=== PATIENT | female | born 1965 | race Caucasian/White ===

== ENCOUNTER 2025-06-30 13:31 | Emergency (ER) | payer BC, SELFPAY ==
[2025-06-30 14:08] VITALS: BP 148/100; PULSE 74; TEMP 37.4; O2SAT 96; BMI 25.1
--- NOTE | 2025-06-30 14:18 | XR_ITS ---
[facility] [id number] Patient Name: VINNY SAMANIEGO MRN: [id number] date: 1965 Sex: F Assigned Patient Location: ER Current Patient Location: ER Accession/Order Number: [id number] Exam Date: 06/30/2025 14:40 Report Date: 06/30/2025 15:09 At the request of: STEFANIE BECERRA MD Procedure: XR ankle RT min 3V RIGHT FOOT - 3 views, right ankle 3 views CLINICAL HISTORY: injury COMPARISON: None FINDINGS: Right ankle: Soft tissue swelling. Ankle mortise appears intact. No acute bony process. Right foot: Soft tissue swelling is present. Plantar spurring is seen. No acute bony process. Minimal degenerative changes. XR/XR ankle RT min 3V IMPRESSION: SOFT TISSUE SWELLING INVOLVING THE RIGHT ANKLE AND FOOT WITHOUT ACUTE BONY PROCESS. Impression dictated by: Kenny Boo Jr., D.OZeeshan 06/30/2025 3:09 PM Dictation Location: [facility] Electronically authenticated by: [id number] Y Date: 06/30/2025 15:09
--- NOTE | 2025-06-30 14:18 | XR_ITS ---
[facility] [id number] Patient Name: VINNY SAMANIEGO MRN: [id number] date: 1965 Sex: F Assigned Patient Location: ER Current Patient Location: ER Accession/Order Number: [id number] Exam Date: 06/30/2025 14:40 Report Date: 06/30/2025 15:09 At the request of: STEFANIE BECERRA MD Procedure: XR ankle RT min 3V RIGHT FOOT - 3 views, right ankle 3 views CLINICAL HISTORY: injury COMPARISON: None FINDINGS: Right ankle: Soft tissue swelling. Ankle mortise appears intact. No acute bony process. Right foot: Soft tissue swelling is present. Plantar spurring is seen. No acute bony process. Minimal degenerative changes. XR/XR foot RT min 3V IMPRESSION: SOFT TISSUE SWELLING INVOLVING THE RIGHT ANKLE AND FOOT WITHOUT ACUTE BONY PROCESS. Impression dictated by: Kenny Boo Jr., D.OZeeshan 06/30/2025 3:09 PM Dictation Location: [facility] Electronically authenticated by: [id number] Y Date: 06/30/2025 15:09
--- NOTE | 2025-06-30 15:54 | ED.GENADUL1 ---
HPI HPI - General Adult General Chief complaint: Extremity Injury, Lower Stated complaint: R FOOT INJURY LAST WK/ SWELLING Time Seen by Provider: 06/30/25 15:37 Source: patient Mode of arrival: walk-in Limitations: no limitations History of Present Illness HPI narrative: Patient is a 59-year-old female that presents to the emergency department 4 days after she was walking down the stairs at work and tripped down 3 steps causing pain to her right ankle. She states she was seen [facility] [id number] in [place] where she was given the diagnosis of ankle sprain and was placed in a Kike wrap and Aircast brace. She presents today as she is still having pain and swelling and had to call off of work Tuesday. She denies any new injury. She states that she is still having pain with ambulation with the Kike wrap and could not tolerate the Aircast brace. Related Data Allergies Allergy/AdvReac Type Severity Reaction Status Date / Time antibiotic AdvReac Numbness Uncoded 06/30/25 14:17 Opioid HPI Opioid Management Most Recent Opioid Data: Last Pain Scale 5 Today, 14:08 Review of Systems ROS Status of ROS 10 or more systems reviewed and unremarkable except as noted in history and below PFSH PFSH Social History Little interest or pleasure in doing things: not at all Feeling down, depressed, or hopeless: not at all Exam Narrative Exam Narrative: General: No distress, age-appropriate, walks with antalgic gait Skin: Warm, dry, no pallor. No rash. Head: Normocephalic, atraumatic. Neck: Supple, non-tender. Eye: Pupils are equal, round and EOMI. No scleral icterus. Ears, Nose, Mouth, and Throat: No nasal mucosal hypertrophy. Oral mucosa is moist, no posterior oropharynx erythema, uvula is mid-line Cardiovascular: Regular Rate and Rhythm without murmur, gallop or rub. Respiratory: No accessory muscle use or respiratory distress. Lungs are clear to auscultation, no wheezing, rales or rhonchi Chest Wall: no tenderness Back: No midline thoracic or lumbar vertebral tenderness. Musculoskeletal: Full ROM of all extremities, except right ankle decreased ROM in DF/PF and eversion/inversion secondary to pain, diffuse ankle/foot swelling. 2+ DP pulse palpated. Sensation intact distally. There is tenderness with palpation of the ATFL, CFL, PTFL, deltoid ligament, and tibiotalar interosseous ligament. Pain with lateral tilt no gross instability. Positive anterior drawer for pain, no gross instability. No calf or popliteal tenderness. GI: Abdomen is soft, non-distended, non tender to palpation. No masses appreciated. No rebound, guarding, or rigidity noted. Neurological: A&O x4. No cranial nerve dysfunction observed. No truncal ataxia. Moves all extremities. Sensation intact. Psychiatric: Cooperative and interactive. Normal mood and affect. Constitutional Vital Signs, click to edit/add: Last Vital Signs Temp 99.3 F 06/30/25 14:08 Pulse 74 06/30/25 14:08 Resp 12 06/30/25 14:08 BP 148/100 H 06/30/25 14:08 Pulse Ox 96 06/30/25 14:08 O2 Del Method Room Air 06/30/25 14:08 Documenting provider has reviewed patient's vital signs: yes Course Vital Signs Vital signs: Vital Signs Temperature 99.3 F 06/30/25 14:08 Pulse Rate 74 06/30/25 14:08 Respiratory Rate 12 06/30/25 14:08 Blood Pressure 148/100 H 06/30/25 14:08 Pulse Oximetry 96 06/30/25 14:08 Oxygen Delivery Method Room Air 06/30/25 14:08 Temperature 99.3 F 06/30/25 14:08 Pulse Rate 74 06/30/25 14:08 Respiratory Rate 12 06/30/25 14:08 Blood Pressure 148/100 H 06/30/25 14:08 Pulse Oximetry 96 06/30/25 14:08 Oxygen Delivery Method Room Air 06/30/25 14:08 Medical Decision Making MDM Narrative Medical decision making narrative: This is a 59-year-old female that presented to the emergency department 4 days after a trip and fall down 3 steps at work and injured her right ankle. She works at the [employer]. This is her second injury to this ankle in the past year. She denies any past surgical history on the ankle. She did go to [facility] and was diagnosed with an ankle sprain and given an Aircast and Kike wrap. She could not tolerate the Aircast and had to call off Tuesday as they did not write her off of work. 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 On arrival patient is in no distress, vitals are stable. Pain appears to be controlled, she is sitting up on the ED cart. There is diffuse swelling to the ankle and foot. 2+ DP pulse palpated. Sensation is intact distally. Patient able to fully flex and extend toes. She has tenderness with palpation to the medial and lateral ankle ligaments and the interosseous membrane. No gross instability on ligament test testing. X-ray right foot reviewed by myself and radiological read is negative for fracture or dislocation. Soft tissue swelling noted. No ankle mortise widening per my review. I discussed imaging with patient and am recommending a tall walking boot with weightbearing as tolerated. 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 Ankle sprain - Tall walking boot, weightbearing as tolerated - X-ray right foot/ankle negative for fracture/dislocation - OTC NSAIDs as needed for pain - Rest, ice, compression, and elevation - Follow-up with onsite occupational provider and get in touch with child welfare caseworker for [employer] tomorrow. - On reevaluation patient can ambulate without pain in the tall walking boot. Patient was discharged to home, pain control, with close follow-up with occupational health provider. Differential Diagnosis Differential Diagnosis: Ankle fracture, ankle sprain Imaging Data Right ankle/foot x-ray: Attestation: I have reviewed the pertinent imaging results. Radiologist's impression: ITS Impressions Ankle X-Ray 06/30/25 14:18 IMPRESSION: SOFT TISSUE SWELLING INVOLVING THE RIGHT ANKLE AND FOOT WITHOUT ACUTE BONY PROCESS. Impression dictated by: Kenny Boo Jr., D.O. 06/30/2025 3:09 PM Dictation Location: [employer] Electronically authenticated by: [id number] Y Date: 06/30/2025 15:09 Foot X-Ray 06/30/25 14:18 IMPRESSION: SOFT TISSUE SWELLING INVOLVING THE RIGHT ANKLE AND FOOT WITHOUT ACUTE BONY PROCESS. Impression dictated by: Kenny Boo Jr., D.O. 06/30/2025 3:09 PM Dictation Location: [employer] Electronically authenticated by: [id number] Y Date: 06/30/2025 15:09 Discharge Plan Discharge Chief Complaint: Extremity Injury, Lower Clinical Impression: Ankle sprain Patient Disposition: Home, Self-Care Time of Disposition Decision: 16:11 Condition: Good Mode of Transportation: Private Vehicle Print Language: [place] Instructions: Ankle Sprain (ED), Walking Boot (ED) Additional Instructions: Wear the walking boot when out of bed. You can bear weight through your right foot as tolerated by pain. You may need crutches short-term if you are still having a lot of pain in the boot with walking. You do not need to wear the boot to bed unless you feel more comfortable in it. Remove the boot for hygiene. Continue to rest, elevate, ice, and wrap with an Kike wrap. You can use [id number] nonsteroidal anti-inflammatories to help with pain, Tylenol or ibuprofen. Follow-up with your onsite occupational provider for ER aftercare follow-up. Referrals: Pascual Wlikins MD [Primary Care Provider] - 1 week
== END 2025-06-30 16:34 | disposition home or self-care (01) ==
PROVIDERS: Emergency Provider Emergency Medicine; PCP Internal Medicine
DX: S93.401A Sprain of unspecified ligament of right ankle, initial encounter (principal); W10.8XXA Fall (on) (from) other stairs and steps, initial encounter; Y92.63 Factory as the place of occurrence of the external cause
CPT/HCPCS: 73610; 73630; 99283